=== PATIENT | female | born 1985 ===

== ENCOUNTER 2018-11-04 15:00 | Emergency (ER) | payer OTHER ==
[2018-11-04 15:00] VITALS: BMI 26.2
[2018-11-04 15:23] VITALS: BP 136/83
[2018-11-04 16:23] LABS: INFLUENZA A B NEGATIVE FOR FLU A/B (NEGATIVE)
[2018-11-04 17:54] VITALS: PULSE 89; RESP 16; TEMP 99.3; O2SAT 98
--- NOTE | 2018-11-04 18:24 | C.PDOC ---
History Of Present Illness Patient is a 33 year old female who presents to the ED c/o diffuse body rash for the past day and an associated fever. Patient states that she completed a course of Bactrim a few days ago and reports no rash during the time she was taking the medication. She brought with her paperwork form a lab stating that she has positive titers for measles, rubella, and varicella immunity. Patient denies the rash is itchy or scabbing and has had no recent travel, sick contacts, or other medical complaints . Time Seen by Provider: 11/04/18 15:29 Chief Complaint (Nursing): Fever History Per: Patient History/Exam Limitations: no limitations Onset/Duration Of Symptoms: Days (1) Current Symptoms Are (Timing): Still Present Associated Symptoms: Fever Recent travel outside of the [place]: No Additional History Per: Patient Past Medical History Reviewed: Historical Data, Nursing Documentation, Vital Signs Vital Signs: Last Vital Signs Temp 99.3 F 11/04/18 17:53 Pulse 89 11/04/18 17:53 Resp 16 11/04/18 17:53 BP 136/83 11/04/18 15:21 Pulse Ox 98 11/04/18 17:53 - Medical History PMH: No Chronic Diseases Denies: Kidney Stones, Chronic Kidney Disease Surgical History: No Surg Hx Family History: States: No Known Family Hx - Social History Hx Alcohol Use: No Hx Substance Use: No - Immunization History Hx Tetanus Toxoid Vaccination: No Review Of Systems Except As Marked, All Systems Reviewed And Found Negative. Constitutional: Positive for: Fever Skin: Positive for: Rash (body ) Physical Exam - Physical Exam Appears: Non-toxic, No Acute Distress Skin: Warm, Dry, Other (diffuse macular rash,+ blanchable, not pruritic, e pidermis intact ) Head: Atraumatic, Normacephalic Oral Mucosa: Moist Neck: Normal ROM, Supple Chest: Symmetrical Cardiovascular: Rhythm Regular Respiratory: Normal Breath Sounds Gastrointestinal/Abdominal: Normal Exam, Soft, No Tenderness Extremity: Normal ROM ED Course And Treatment O2 Sat by Pulse Oximetry: 98 (on RA) Pulse Ox Interpretation: Normal Medical Decision Making Medical Decision Making: Plan: Serology Rapid Strep Serology Influenza Serology Monospot Throat Culture Decadron Inj 10mg IM Tylenol 975mg PO Progress note: Patient given steroids in ED and will follow up in clinic in 2 days for reevaluation Disposition - Disposition Referrals: [facility] [Outside] [facility] [Outside] Disposition: HOME/ ROUTINE Disposition Time: 17:20 Condition: GOOD Additional Instructions: KARINA HURLEY, thank you for letting us take care of you today. The emergency medical care you received today was directed at your acute symptoms. If you were prescribed any medication, please fill it and take as directed. It may take several days for your symptoms to resolve. Return to the Emergency Department if your symptoms worsen, do not improve, or if you have any other problems. Please contact your doctor or call one of the physicians/clinics you have been referred to that are listed on the Patient Visit Information form that is included in your discharge packet. Bring any paperwork you were given at discharge with you along with any medications you are taking to your follow up visit. Our treatment cannot replace ongoing medical care by a primary care provider outside of the emergency department. Thank you for allowing the [facility] team to be part of your care today. Follow up with our clinic in 3-5 days for re-evaluation and further management. Prescriptions: predniSONE [Prednisone] 40 mg PO DAILY #10 tab Instructions: Skin Rash (DC) Forms: [employer] (Kyrgyz) - Clinical Impression Clinical Impression: Fever - Scribe Statement The provider has reviewed the documentation as recorded by the Alissa Oconnor All medical record entries made by the Javieribshola were at my direction and personally dictated by me. I have reviewed the chart and agree that the record accurately reflects my personal performance of the history, physical exam, medical decision making, and the department course for this patient. I have also personally directed, reviewed, and agree with the discharge instructions and disposition.
== END 2018-11-04 17:53 | disposition home or self-care (01) ==
LOC: C.ER 15:00
DX: R50.9 Fever, unspecified (principal)
CPT/HCPCS: 86308; 87070; 87430; 87804; 96372; 99283; J1100